=== PATIENT | female | born 1985 | race Caucasian/White ===

== ENCOUNTER 2016-07-26 02:02 | Emergency (ER) | payer OTHER ==
[2016-07-26 03:22] LABS: PLATELET COUNT 217 x10^3mcL (130-400)
[2016-07-26 03:26] LABS: BASOPHIL % 3.6 % (0-2); RED CELL DISTRIBUTION WIDTH 17.2 % (11.5-14.5)
[2016-07-26 03:31] LABS: CALCIUM 8.1 mg/dL (8.5-10.1); CHLORIDE SERUM 108 mmol/L (98-107); CREATININE SERUM 0.7 mg/dL (0.6-1.0); GFR1 > 60 mL/min; GLUCOSE SERUM 88 mg/dL (74-106); POTASSIUM SERUM 3.6 mmol/L (3.5-5.1); SODIUM SERUM 143 mmol/L (136-145)
[2016-07-26 03:44] LABS: ALBUMIN 3.5 g/dL (3.4-5.0); ALKALINE PHOSPHATASE 71 U/L (46-116); ALT/SGPT 20 U/L (14-59); AST/SGOT 18 U/L (15-37); BILIRUBIN TOTAL 0.6 mg/dL (0.20-1.00); T4(THYROXINE) 7.4 ug/dL (4.7-13.3); TOTAL PROTEIN, SERUM 7.2 g/dL (6.4-8.2)
[2016-07-26 04:56] VITALS: BP 117/76
== END 2016-07-26 04:56 | disposition home or self-care (01) ==
LOC: ED 02:02
PROVIDERS: Emergency Medicine
DX: R53.1 Weakness (principal); R11.0 Nausea; J45.909 Unspecified asthma, uncomplicated

== ENCOUNTER 2018-03-04 20:56 | Emergency (ER) | payer OTHER ==
[~2018-03-04] VITALS: Ht 165.1 cm; Wt 85.3 kg
[2018-03-04 21:24] VITALS: Ht 165.1 cm; Wt 85.3 kg
[2018-03-05 00:13] VITALS: BP 129/64
== END 2018-03-05 00:13 | disposition home or self-care (01) ==
LOC: ED 20:56
DX: J06.9 Acute upper respiratory infection, unspecified (principal); J45.909 Unspecified asthma, uncomplicated; Z85.41 Personal history of malignant neoplasm of cervix uteri
CPT/HCPCS: J1100